=== PATIENT | male | born 1995 | race Caucasian/White ===

== ENCOUNTER 2016-10-19 23:27 | Emergency (ER) | payer OTHER ==
--- NOTE | 2016-10-20 04:48 | ED ORDER SUMMARY ---
..... Patient: MOO FUENTES OrderSheet [facility] VisitID: [id number] [place] [address] 20y, M Registration Date/Time: 10/19/2016 ORDER SHEET Weight: 115.8 kg Allergies: No Known Drug Allergy GENERAL ORDERS: CBC w Diff Urgent (03:32 10/20/2016 Riana Pelaez) (3:43 EBonalfonso) CMP Urgent (03:10/20/2016 Riana Pelaez) (3:43 EBonalfonso) Amylase Urgent (03:10/20/2016 Riana Pelaez) (3:43 EBonalfonso) Lipase Urgent (03:10/20/2016 Riana Pelaez) (3:43 EBonalfonso) MEDICATION ORDERS: IV FLUIDS: IV NS : initial bolus none -, then 1000 mL/hr for X1 (NOW) (03:31 10/20/2016 Riana Pelaez) (3:44 EBonalfonso) ORDER SHEET NOTES: [Electronically signed by Tiffany Callahan (05:10/20/2016)] [Electronically signed by Sebastian Caballero Dr. (11:03 10/20/2016)] [Electronically locked/signed by Tiffany Callahan (05:10/20/2016)]
--- NOTE | 2016-10-20 04:48 | ED NURSING NOTES ---
Clinical Report - Nurses [facility] [address] [place] [address] 10/19/2016 23:30 Patient: MOO FUENTES TRIAGE Triage time 0220. Acuity: LEVEL 3. Chief Complaint: ABDOMINAL PAIN, NAUSEA and VOMITING. Alert. No acute distress. --02:32 Tiffany Callahan 02:28 10/20/16. BP: 119/66. HR: 56. RR: 18. O2 saturation: 96%. Temp: 99.2 F. Pain level now 5/10. --02:32 Tiffany Callahan. Weight: 115.8 kg. Height/Length: 71 inches. BMI: 35.6. --02:28 Tiffany Callahan. Medications PROzac Oral. --02:30 Tiffany Callahan Thyroid Oral. --02:30 Tiffany Callahan. Allergies No Known Drug Allergy. --02:30 Tiffany Callahan. History Arrived by private vehicle. Historian: family. Accompanied by family. Onset. (3 days ago). ( Pt with generalized abd pain, n/v, denies diarrhea, sts has hx of this x5 this year, sts usually goes to Prov, has seen GI, no scope done). ( last BM Tuesday). Treatment HOSPICE PHYSICIAN: None. SOCIAL HX: Never smoker. --02:32 Tiffany Callahan. PROBLEMS: Depression. Thyroid Disease. Gastritis. --02:31 Tiffany Callahan. Interventions ID band on patient. To treatment room. --02:32 Tiffany Callahan. PHYSICAL ASSESSMENT Ambulatory to room. GENERAL / NEURO / PSYCH: Alert. Oriented X 4. Appears in no acute distress. HEENT: Mucous membranes are pink. RESPIRATORY: Respirations not labored. Breath sounds within normal limits. CVS: Normal sinus rhythm noted. Capillary refill less than 2 seconds. GI / : The patient has had nausea. Emesis noted. Obesity. Abdominal tenderness. SKIN: Skin is warm and dry. --02:32 Tiffany Callahan. NURSING PROGRESS NOTES 03:44 10/20/2016 Site #1 started via IV in the right antecubital space with an 20g angiocath, with aseptic technique and good blood return; one attempt. Blood drawn: rainbow set. Labeled in the presence of the patient and sent to the lab. Saline lock flushed with 10 mL saline. --03:44 Tiffany Callahan 03:44 10/20/2016 Started bag #1 500 mL IV Fluids IV NS (Saline); bolus of 1000 mL wide open via site #1 --03:44 Tiffany Callahan 05:00 10/20/2016 Site #1 removed upon discharge. Pressure dressing applied. --05:00 Tiffany Callahan 05:00 10/20/2016 IV Fluids IV NS Discontinued: bag #1 infused upon discharge. Total amount infused: 1000 mL. --05:00 Tiffany Callahan. DISPOSITION / DISCHARGE Departure time: 0500. Condition at departure: improved and stable. No learning barriers present. Discharge instructions provided and reviewed with the patient. Reviewed medication(s). Patient verbalized understanding. Written instructions provided in Kiswahili. The patient was discharged by the physician. He was discharged home and accompanied by family. He left the Emergency Department ambulatory and via private vehicle. Family member driving. --05:01 Tiffany Callahan 05:00 10/20/16. BP: 102/40. HR: 50. RR: 16. O2 saturation: 98%. Pain level now 2/10. --05:01 Tiffany Callahan. Locked/Released at 10/20/2016 5:02 by Tiffany Callahan,
--- NOTE | 2016-10-20 04:48 | ED CLINICAL REPORT ---
Clinical Report - Physicians/Mid Levels [facility] [address] [place] [address] 10/19/2016 23:30 Patient: MOO FUENTES Arrived- By private vehicle. Historian- patient. HISTORY OF PRESENT ILLNESS Chief Complaint: VOMITING. This started about 3 days ago and is still present. It was gradual in onset. The patient has had nausea and vomiting. No diarrhea, abdominal pain, constipation, history of possible bad food exposure or known contact with a sick individual. Has not recently been on antibiotics. The illness is described as mild. Similar symptoms previously: Many times. Recent medical care: Not recently seen/assessed. REVIEW OF SYSTEMS No fever, muscle aches, dizziness or skin rash. He has had a headache. PAST HISTORY See nurses notes. SOCIAL HISTORY Current every day smoker. Alcohol use. History of drug use: marijuana. PHYSICAL EXAM Appearance: Alert. Oriented X3. Eyes: Pupils equal, round and reactive to light. Eyes normal inspection. ENT: Dry mucous membranes present. Neck: Neck supple. CVS: Normal heart rate and rhythm. Heart sounds normal. Respiratory: No respiratory distress. Breath sounds normal. Abdomen: Soft and nontender. Bowel sounds normal. Skin: Skin warm and dry. Normal skin color. No rash. Neuro: Oriented X 3. No motor deficit. No sensory deficit. Reflexes normal. LABS, X-RAYS, AND EKG Laboratory Tests: CBC w Diff: (AKASH: 10/20/2016 03:40) ( MsgRcvd 10/20/2016 03:52) Final results Test Result Flag Units (Reference) WHITE BLOOD COUNT 13.8 H K/uL (4.5-11.5) RED BLOOD COUNT 5.53 M/uL (4.50-5.90) HEMOGLOBIN 16.9 gm/dL (13.5-17.5) HEMATOCRIT 50.5 % (41.0-53.0) MEAN CELL VOLUME 91 fL (80-100) MEAN CORPUSCULAR HGB 31 pg (26-34) MEAN CORPUSCULAR HGB CONC 33 g/dL (31-37) RED CELL DISTRIBUTION WIDTH 12.8 % (11.6-14.8) PLATELET COUNT 222 K/uL (150-400) NEUTROPHIL % 73.1 % (50-75) LYMPH % 20.0 L % (25-40) MONO % 6.1 % (3-14) EOSINOPHIL % 0.2 % (0-4) BASOPHIL % 0.6 % (0-2) CMP: (AKASH: 10/20/2016 03:40) ( MsgRcvd 10/20/2016 04:06) Final results Test Result Flag Units (Reference) GLUCOSE 94 mg/dL (70-110) BUN 15 mg/dL (7-18) CREATININE 1.1 mg/dL (0.6-1.3) Estimated GFR >60 mL/min Estimated GFR- >60 mL/min Note: Persistent reduction over 3 months in eGFR<60 mL/min/1.73 m2 defines CKD. Patients with eGFR values>=60 mL/min/1.73 m2 may also have CKD if evidence ofpersistent proteinuria. Additional information may be foundat www.kidney.org. SODIUM 137 mmol/L (136-145) POTASSIUM 3.7 mmol/L (3.5-5.1) CHLORIDE 100 mmol/L (98-107) CARBON DIOXIDE 28 mmol/L (21-32) CALCIUM 9.3 mg/dL (8.5-10.1) TOTAL PROTEIN 7.7 g/dL (6.4-8.2) ALBUMIN 4.3 g/dL (3.3-5.0) BILIRUBIN, TOTAL 1.1 H mg/dL (0.0-1.0) ALKALINE PHOSPHATASE 64 U/L (46-116) AST (SGOT) 13 L U/L (15-37) ALT (SGPT) 37 U/L (12-78) LIPASE 103 U/L (73-393) AMYLASE 32 U/L (25-115) . PROGRESS AND PROCEDURES Course of Care: 10/20/2016 02:28 BP: 119/66. HR: 56. RR: 18. O2 saturation: 96%. Temp: 99.2 F. 04:47. Evaluation after repeat exam and IV fluids. Vital Signs: have been reviewed. Blood pressure normal. Bradycardic. Respiratory rate normal. Temperature normal. Oxygen saturation normal. The patient's symptoms are now gone. Disposition: Condition: good. CLINICAL IMPRESSION Mild nausea. No vomiting. Acute vascular headache. INSTRUCTIONS Drink plenty of fluids. No alcohol. Do not smoke. Your Current Medications: CONTINUE TAKING THE FOLLOWING MEDICATIONS: PROzac Oral. Thyroid Oral. Prescription Medications: Zofran (orally disintegrating tablets) 4 mg: take 1 orally every 6 hours as needed for nausea and vomiting. Dispense ten (10). No refill. Substitution is permissible. Follow-up: Follow up with your doctor in about two days. Call for an appointment. Screening today revealed the patient's blood pressure to be in the normal range. (Electronically signed by Sebastian Caballero Dr. 10/20/2016 11:03)
--- NOTE | 2016-10-20 04:48 | ED ORDER SUMMARY ---
..... Patient: MOO FUENTES OrderSheet [facility] VisitID: [id number] [place] [address] 20y, M Registration Date/Time: 10/19/2016 ORDER SHEET Weight: 115.8 kg Allergies: No Known Drug Allergy GENERAL ORDERS: CBC w Diff Urgent (03:32 10/20/2016 Riana Pelaez) (3:43 EBonalfonso) CMP Urgent (03:10/20/2016 Riana Pelaez) (3:43 EBonalfonso) Amylase Urgent (03:10/20/2016 Riana Pelaez) (3:43 EBonalfonso) Lipase Urgent (03:10/20/2016 Riana Pelaez) (3:43 EBonalfonso) MEDICATION ORDERS: IV FLUIDS: IV NS : initial bolus none -, then 1000 mL/hr for X1 (NOW) (03:31 10/20/2016 Riana Pelaez) (3:44 EBonalfonso) ORDER SHEET NOTES: [Electronically signed by Tiffany Callahan (05:10/20/2016)] [Electronically signed by Sebastian Caballero Dr. (11:03 10/20/2016)] [Electronically locked/signed by Tiffany Callahan (05:10/20/2016)]
--- NOTE | 2016-10-20 04:48 | ED NURSING NOTES ---
Clinical Report - Nurses [facility] [address] [place] [address] 10/19/2016 23:30 Patient: MOO FUENTES TRIAGE Triage time 0220. Acuity: LEVEL 3. Chief Complaint: ABDOMINAL PAIN, NAUSEA and VOMITING. Alert. No acute distress. --02:32 Tiffany Callahan 02:28 10/20/16. BP: 119/66. HR: 56. RR: 18. O2 saturation: 96%. Temp: 99.2 F. Pain level now 5/10. --02:32 Tiffany Callahan. Weight: 115.8 kg. Height/Length: 71 inches. BMI: 35.6. --02:28 Tiffany Callahan. Medications PROzac Oral. --02:30 Tiffany Callahan Thyroid Oral. --02:30 Tiffany Callahan. Allergies No Known Drug Allergy. --02:30 Tiffany Callahan. History Arrived by private vehicle. Historian: family. Accompanied by family. Onset. (3 days ago). ( Pt with generalized abd pain, n/v, denies diarrhea, sts has hx of this x5 this year, sts usually goes to Prov, has seen GI, no scope done). ( last BM Tuesday). Treatment HOUSE CARPENTER: None. SOCIAL HX: Never smoker. --02:32 Tiffany Callahan. PROBLEMS: Depression. Thyroid Disease. Gastritis. --02:31 Tiffany Callahan. Interventions ID band on patient. To treatment room. --02:32 Tiffany Callahan. PHYSICAL ASSESSMENT Ambulatory to room. GENERAL / NEURO / PSYCH: Alert. Oriented X 4. Appears in no acute distress. HEENT: Mucous membranes are pink. RESPIRATORY: Respirations not labored. Breath sounds within normal limits. CVS: Normal sinus rhythm noted. Capillary refill less than 2 seconds. GI / : The patient has had nausea. Emesis noted. Obesity. Abdominal tenderness. SKIN: Skin is warm and dry. --02:32 Tiffany Callahan. NURSING PROGRESS NOTES 03:44 10/20/2016 Site #1 started via IV in the right antecubital space with an 20g angiocath, with aseptic technique and good blood return; one attempt. Blood drawn: rainbow set. Labeled in the presence of the patient and sent to the lab. Saline lock flushed with 10 mL saline. --03:44 Tiffany Callahan 03:44 10/20/2016 Started bag #1 500 mL IV Fluids IV NS (Saline); bolus of 1000 mL wide open via site #1 --03:44 Tiffany Callahan 05:00 10/20/2016 Site #1 removed upon discharge. Pressure dressing applied. --05:00 Tiffany Callahan 05:00 10/20/2016 IV Fluids IV NS Discontinued: bag #1 infused upon discharge. Total amount infused: 1000 mL. --05:00 Tiffany Callahan. DISPOSITION / DISCHARGE Departure time: 0500. Condition at departure: improved and stable. No learning barriers present. Discharge instructions provided and reviewed with the patient. Reviewed medication(s). Patient verbalized understanding. Written instructions provided in Khmer. The patient was discharged by the physician. He was discharged home and accompanied by family. He left the Emergency Department ambulatory and via private vehicle. Family member driving. --05:01 Tiffany Callahan 05:00 10/20/16. BP: 102/40. HR: 50. RR: 16. O2 saturation: 98%. Pain level now 2/10. --05:01 Tiffany Callahan. Locked/Released at 10/20/2016 5:02 by Tiffany Callahan,
--- NOTE | 2016-10-20 11:03 | ED MAR SUMMARY ---
..... Medication Administration Record [facility] [address] [place] [address] Patient: MOO FUENTES Visit ID: [id number] 20y, M Weight: 115.8 kg Height/Length: 71 in BMI: 35.6 ALLERGIES: No Known Drug Allergy Start 03:44 10/20/2016 Tiffany Callahan,, Stop 05:00 10/20/2016 Tiffany Callahan, Medication Administered: IV NS (SALINE), Dose: IV Fluids, Bolus: 1000 mL wide open, Dispensed: 500 mL bag, Site: #1 right AC. Medication Ordered: IV NS : initial bolus none -, then 1000 mL/hr for X1 (NOW).
--- NOTE | 2016-10-20 11:03 | ED DISCHARGE INSTRUCTIONS ---
Patient: MOO FUENTES General Instructions [facility] VisitID: [id number] [place] [address] 20y, M Registration Date/Time: 10/19/2016 Mild nausea. No vomiting. Acute vascular headache. INSTRUCTIONS Drink plenty of fluids. No alcohol. Do not smoke. Your Current Medications: CONTINUE TAKING THE FOLLOWING MEDICATIONS: PROzac Oral. Thyroid Oral. Prescription Medications: Zofran (orally disintegrating tablets) 4 mg: take 1 orally every 6 hours as needed for nausea and vomiting. Dispense ten (10). No refill. Substitution is permissible. Follow-up: Follow up with your doctor in about two days. Call for an appointment. Screening today revealed the patient's blood pressure to be in the normal range. ADDITIONAL INFORMATION Headache [Unspecified] The cause of your headache today is not clear, but it does not appear to be the sign of any serious illness. Under stress, some people tense the muscles of their shoulder, neck and scalp without knowing it. If this condition lasts long enough, a TENSION HEADACHE can occur. A MIGRAINE HEADACHE is caused by changes in blood flow to the brain. A migraine attack may be triggered by emotional stress, hormone changes during the menstrual cycle, oral contraceptives, alcohol use, certain foods containing tyramine, eye strain, weather changes, missing meals, lack of sleep or oversleeping. Other causes of headache include a viral illness with high fever, head injury with concussion, sinus, ear or throat infection, dental pain and TMJ (jaw joint) pain. More serious but less common causes of headache include stroke, brain hemorrhage, brain tumor, meningitis and encephalitis. Home Care: If you were given pain medicine for this headache, do not drive yourself home. Arrange for a ride, instead. When you get home, try to sleep. You should feel much better when you wake up. Apply heat to the back of your neck to relieve neck muscle spasm. Migraine headaches may respond best to an ice pack on the forehead or at the base of the skull. If you are having nausea or vomiting, follow a light diet until your headache is relieved. If you have a migraine type headache, use sunglasses when in the daylight or around bright indoor lighting until symptoms improve. Bright glaring light can worsen this kind of headache. Follow Up with your doctor if the headache is not better within the next 24 hours. If you have frequent headaches you should discuss a treatment plan with your primary care doctor. By being aware of the earliest signs of headache, and starting treatment right away, you may be able to stop the pain yourself. Get Prompt Medical Attention if any of the following occur: Worsening of your head pain or no improvement within 24 hours Repeated vomiting (unable to keep liquids down) Fever of 100.4F (38C) or higher, or as directed by your healthcare provider Stiff neck Extreme drowsiness, confusion or fainting Dizziness, vertigo (dizziness with spinning sensation) Weakness of an arm or leg or one side of the face Difficulty with speech or vision Ondansetron Oral disintegrating tablet What is this medicine? ONDANSETRON (on SYED se souleymane) is used to treat nausea and vomiting caused by chemotherapy. It is also used to prevent or treat nausea and vomiting after surgery. How should I use this medicine? These tablets are made to dissolve in the mouth. Do not try to push the tablet through the foil backing. With dry hands, peel away the foil backing and gently remove the tablet. Place the tablet in the mouth and allow it to dissolve, then swallow. While you may take these tablets with water, it is not necessary to do so. Talk to your baby stroller rental clerk regarding the use of this medicine in children. Special care may be needed. What side effects may I notice from receiving this medicine? Side effects that you should report to your doctor or health child care associate teacher as soon as possible: allergic reactions like skin rash, itching or hives, swelling of the face, lips, or tongue breathing problems dizziness fast or irregular heartbeat feeling faint or lightheaded, falls fever and chills swelling of the hands and feet tightness in the chest Side effects that usually do not require medical attention (report to your doctor or health child care associate teacher if they continue or are bothersome): constipation or diarrhea headache What may interact with this medicine? Do not take this medicine with any of the following medications: -apomorphine -cisapride -dofetilide -dronedarone -pimozide -thioridazine -ziprasidone This medicine may also interact with the following medications: -carbamazepine -phenytoin -rifampicin -tramadol -other medicines that prolong the QT interval (cause an abnormal heart rhythm) What if I miss a dose? If you miss a dose, take it as soon as you can. If it is almost time for your next dose, take only that dose. Do not take double or extra doses. Where should I keep my medicine? Keep out of the reach of children. Store between 2 and 30 degrees C (36 and 86 degrees F). Throw away any unused medicine after the expiration date. What should I tell my health care provider before I take this medicine? They need to know if you have any of these conditions: heart disease history of irregular heartbeat liver disease low levels of magnesium or potassium in the blood an unusual or allergic reaction to ondansetron, granisetron, other medicines, foods, dyes, or preservatives or trying to get breast-feeding What should I watch for while using this medicine? Check with your doctor or health child care associate teacher as soon as you can if you have any sign of an allergic reaction. You have been given the following additional information: Headache, Unspecified Ondansetron Oral disintegrating tablet (Electronically signed by Sebastian Caballero Dr. 10/20/2016 11:03)
--- NOTE | 2016-10-20 11:03 | ED MAR SUMMARY ---
..... Medication Administration Record [facility] [address] [place] [address] Patient: MOO FUENTES Visit ID: [id number] 20y, M Weight: 115.8 kg Height/Length: 71 in BMI: 35.6 ALLERGIES: No Known Drug Allergy Start 03:44 10/20/2016 Tiffany Callahan,, Stop 05:00 10/20/2016 Tiffany Callahan, Medication Administered: IV NS (SALINE), Dose: IV Fluids, Bolus: 1000 mL wide open, Dispensed: 500 mL bag, Site: #1 right AC. Medication Ordered: IV NS : initial bolus none -, then 1000 mL/hr for X1 (NOW).
--- NOTE | 2016-10-20 11:03 | ED MED RECONCILIATION SUMMARY ---
Patient: MOO FUENTES Medication Reconciliation Report [facility] VisitID: [id number] [address] [place] [address] 20y, M Registration Date/Time: 10/19/2016 Weight: 115.8 kg Height/Length: 71 in. BMI: 35.6 ALLERGIES: No Known Drug Allergy The patient's Home Medications are listed below: CONTINUE TAKING THE FOLLOWING MEDICATIONS: PROzac Oral Thyroid Oral The source(s) of the original Home Medication information: Not obtained. The following Medications were given to the patient in the Emergency Department: IV NS IV Fluids bolus 1000 mL wide open, administered: 10/20/2016 3:44:00 AM The following Medications were prescribed to the patient: Zofran (orally disintegrating tablets) 4 mg: take 1 orally every 6 hours as needed for nausea and vomiting. Dispense ten (10). No refill. Substitution is permissible. -- Sebastian Caballero Dr.
--- NOTE | 2016-10-20 11:03 | ED MED RECONCILIATION SUMMARY ---
Patient: MOO FUENTES Medication Reconciliation Report [facility] VisitID: [id number] [address] [place] [address] 20y, M Registration Date/Time: 10/19/2016 Weight: 115.8 kg Height/Length: 71 in. BMI: 35.6 ALLERGIES: No Known Drug Allergy The patient's Home Medications are listed below: CONTINUE TAKING THE FOLLOWING MEDICATIONS: PROzac Oral Thyroid Oral The source(s) of the original Home Medication information: Not obtained. The following Medications were given to the patient in the Emergency Department: IV NS IV Fluids bolus 1000 mL wide open, administered: 10/20/2016 3:44:00 AM The following Medications were prescribed to the patient: Zofran (orally disintegrating tablets) 4 mg: take 1 orally every 6 hours as needed for nausea and vomiting. Dispense ten (10). No refill. Substitution is permissible. -- Sebastian Caballero Dr.
--- NOTE | 2016-10-20 11:03 | ED DISCHARGE INSTRUCTIONS ---
Patient: MOO FUENTES General Instructions [facility] VisitID: [id number] [place] [address] 20y, M Registration Date/Time: 10/19/2016 Mild nausea. No vomiting. Acute vascular headache. INSTRUCTIONS Drink plenty of fluids. No alcohol. Do not smoke. Your Current Medications: CONTINUE TAKING THE FOLLOWING MEDICATIONS: PROzac Oral. Thyroid Oral. Prescription Medications: Zofran (orally disintegrating tablets) 4 mg: take 1 orally every 6 hours as needed for nausea and vomiting. Dispense ten (10). No refill. Substitution is permissible. Follow-up: Follow up with your doctor in about two days. Call for an appointment. Screening today revealed the patient's blood pressure to be in the normal range. ADDITIONAL INFORMATION Headache [Unspecified] The cause of your headache today is not clear, but it does not appear to be the sign of any serious illness. Under stress, some people tense the muscles of their shoulder, neck and scalp without knowing it. If this condition lasts long enough, a TENSION HEADACHE can occur. A MIGRAINE HEADACHE is caused by changes in blood flow to the brain. A migraine attack may be triggered by emotional stress, hormone changes during the menstrual cycle, oral contraceptives, alcohol use, certain foods containing tyramine, eye strain, weather changes, missing meals, lack of sleep or oversleeping. Other causes of headache include a viral illness with high fever, head injury with concussion, sinus, ear or throat infection, dental pain and TMJ (jaw joint) pain. More serious but less common causes of headache include stroke, brain hemorrhage, brain tumor, meningitis and encephalitis. Home Care: If you were given pain medicine for this headache, do not drive yourself home. Arrange for a ride, instead. When you get home, try to sleep. You should feel much better when you wake up. Apply heat to the back of your neck to relieve neck muscle spasm. Migraine headaches may respond best to an ice pack on the forehead or at the base of the skull. If you are having nausea or vomiting, follow a light diet until your headache is relieved. If you have a migraine type headache, use sunglasses when in the daylight or around bright indoor lighting until symptoms improve. Bright glaring light can worsen this kind of headache. Follow Up with your doctor if the headache is not better within the next 24 hours. If you have frequent headaches you should discuss a treatment plan with your primary care doctor. By being aware of the earliest signs of headache, and starting treatment right away, you may be able to stop the pain yourself. Get Prompt Medical Attention if any of the following occur: Worsening of your head pain or no improvement within 24 hours Repeated vomiting (unable to keep liquids down) Fever of 100.4F (38C) or higher, or as directed by your healthcare provider Stiff neck Extreme drowsiness, confusion or fainting Dizziness, vertigo (dizziness with spinning sensation) Weakness of an arm or leg or one side of the face Difficulty with speech or vision Ondansetron Oral disintegrating tablet What is this medicine? ONDANSETRON (on SYED se souleymane) is used to treat nausea and vomiting caused by chemotherapy. It is also used to prevent or treat nausea and vomiting after surgery. How should I use this medicine? These tablets are made to dissolve in the mouth. Do not try to push the tablet through the foil backing. With dry hands, peel away the foil backing and gently remove the tablet. Place the tablet in the mouth and allow it to dissolve, then swallow. While you may take these tablets with water, it is not necessary to do so. Talk to your director of compliance regarding the use of this medicine in children. Special care may be needed. What side effects may I notice from receiving this medicine? Side effects that you should report to your doctor or health critical care educator as soon as possible: allergic reactions like skin rash, itching or hives, swelling of the face, lips, or tongue breathing problems dizziness fast or irregular heartbeat feeling faint or lightheaded, falls fever and chills swelling of the hands and feet tightness in the chest Side effects that usually do not require medical attention (report to your doctor or health critical care educator if they continue or are bothersome): constipation or diarrhea headache What may interact with this medicine? Do not take this medicine with any of the following medications: -apomorphine -cisapride -dofetilide -dronedarone -pimozide -thioridazine -ziprasidone This medicine may also interact with the following medications: -carbamazepine -phenytoin -rifampicin -tramadol -other medicines that prolong the QT interval (cause an abnormal heart rhythm) What if I miss a dose? If you miss a dose, take it as soon as you can. If it is almost time for your next dose, take only that dose. Do not take double or extra doses. Where should I keep my medicine? Keep out of the reach of children. Store between 2 and 30 degrees C (36 and 86 degrees F). Throw away any unused medicine after the expiration date. What should I tell my health care provider before I take this medicine? They need to know if you have any of these conditions: heart disease history of irregular heartbeat liver disease low levels of magnesium or potassium in the blood an unusual or allergic reaction to ondansetron, granisetron, other medicines, foods, dyes, or preservatives or trying to get breast-feeding What should I watch for while using this medicine? Check with your doctor or health critical care educator as soon as you can if you have any sign of an allergic reaction. You have been given the following additional information: Headache, Unspecified Ondansetron Oral disintegrating tablet (Electronically signed by Sebastian Caballero Dr. 10/20/2016 11:03)
== END 2016-10-20 05:00 | disposition home or self-care (01) ==
LOC: ED SRH 23:27
DX: R11.0 Nausea (principal); G44.1 Vascular headache, not elsewhere classified; F17.210 Nicotine dependence, cigarettes, uncomplicated
CPT/HCPCS: 90100; 92235; 92530; 95059

== ENCOUNTER 2016-12-02 12:50 | Emergency (ER) | payer OTHER ==
--- NOTE | 2016-12-02 15:49 | ED NURSING NOTES ---
Clinical Report - Nurses [facility] [place] [address] 12/02/2016 12:53 Patient: MOO FUENTES TRIAGE Triage time 13:03 Dec 02 2016. Acuity: LEVEL 3. Chief Complaint: ABDOMINAL PAIN, NAUSEA, VOMITING and DIARRHEA. 13:08 12/02/16. Alert. No acute distress. SEPSIS SCREEN: Sepsis Screen. Negative (no infection suspected/documented). ARCENIO COMA SCORE: Arcenio Coma Scale: 15- eyes open spontaneously (4); best verbal response- oriented x 4 (5); best motor response- obeys commands (6). --13:08 Oliva Sharma 13:08 12/02/16. BP: 144/78. HR: 83. RR: 14. O2 saturation: 97%. Temp: 98.7 F. Pain level now 4/10. --13:08 Oliva Sharma. Weight: 115.6 kg stated. Height/Length: 72 inches Per Patient. BMI: 34.6. --13:07 Oliva Sharma. Medications PROzac Oral. Thyroid Oral. --13:06 Oliva Sharma. Medication/allergy information source: the patient. --13:08 Oliva Sharma. Allergies No Known Drug Allergy. --13:06 Oliva Sharma. History Arrived by private vehicle. Historian: patient. Accompanied by (Grandmother dropped off and will sisal picker). Primary physician ([facility] in [facility]). Onset. (Tuesday). ( Pt reports he had a "cold" that started Tuesday with cough. On Tuesday he started having abd symptoms, including nausea, vomiting and diarrhea. Had mild pain right in the middle of his stomach. Pt reports he has been having episodes of this for over the past year. Pt saw GI doctor who "didn't do anything."). He has had nausea, vomiting, diarrhea and abdominal pain. No constipation or fever. Last oral intake by patient was (last night). 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 PAST MEDICAL HX: No history of diabetes mellitus. No history of gastroesophageal reflux disease, peptic ulcer disease or gallstones. Immunizations: up-to-date. SOCIAL HX: Never smoker. Occasional alcohol use. History of drug use: marijuana. No known contact with a sick individual. FALL RISK ASSESSMENT: Fall risk assessment completed. No fall risk identified. NUTRITIONAL RISK ASSESSMENT: The nutritional risk assessment revealed no deficiencies. FUNCTIONAL ASSESSMENT: Functional assessment: no impairments noted. LEARNING NEEDS ASSESSMENT: The learning needs assessment revealed no barriers. SKIN INTEGRITY ASSESSMENT: Skin integrity risk assessment completed. No skin integrity risk identified. --13:08 Oliva Sharma. PROBLEMS: Headache. Nausea. Depression. Thyroid Disease. Gastritis. --13:06 Oliva Sharma. Assessment The patient states feels the same. --13: Oliva Sharma. Interventions ID band on patient. --13: Oliva Sharma. PHYSICAL ASSESSMENT 13:12/02/16. Ambulatory to room. Patient gowned. GENERAL / NEURO / PSYCH: Alert. Oriented X 4. Appears in no acute distress. HEENT: Mucous membranes are pink. RESPIRATORY: Respirations not labored. CVS: Capillary refill less than 2 seconds. GI / : The patient has had nausea. Abdomen soft. Abdominal tenderness in the periumbilical area. SKIN: Skin is warm and dry. --13:08 Oliva Sharma. NURSING PROGRESS NOTES 13:12/02/16. The plan of care for this patient has been created. Pulse oximeter and NIBP monitor placed on patient; monitor alarms on. Patient gowned. Head of bed elevated. Reassurance given. Two patient identifiers checked. Call light placed in reach. Bed placed in lowest position. Brakes of bed on. Patient ready for evaluation- chart flagged and ED physician and DISABILITY PROGRAM NAVIGATOR notified. --13: Oliva Sharma 13:17 12/02/2016 Site #1 started via IV in the right antecubital space with an 20g angiocath, with aseptic technique and good blood return; one attempt. Blood drawn: rainbow set. Labeled in the presence of the patient and sent to the lab. Saline lock flushed with 10 mL saline. --13:22 Oliva Sharma 13:12/02/2016 Started bag #1 1000 mL IV Fluids IV NS (Saline); at 1000 mL/hr over 1 hour(s) via site #1 via IV pump. Allergies verified and confirmed 5 rights. IV patency established. IV site checked: no pain, redness, or swelling. IV flushed thoroughly pre- and post-medication administration. --13:31 Oliva Sharma 13:12/02/2016 Zofran (Ondansetron HCl) IVP 4 mg given over 1 minute(s) via site #1. Allergies verified and confirmed 5 rights. IV patency established. IV site checked: no pain, redness, or swelling. IV flushed thoroughly pre- and post-medication administration. IVP given by RN. --13:31 Oliva Sharma 14:18 12/02/16. BP: 146/86. HR: 83. O2 saturation: 97%. --14:18 Oliva Sharma 14:18 12/02/16. ( Pt aware of need for urine sample.). --14:18 Oliva Sharma 14:34 12/02/2016 IV Fluids IV NS Bag Change: bag #1 infused. Total amount infused: 1000. STARTED bag #2 (1000 mL) at 150 mL/hr via IV pump. Confirmed 5 rights. IV patency established. IV site checked: no pain, redness, or swelling. IV flushed thoroughly. --14:34 Oliva Sharma Patient ID band checked for patient name: patient confirmed. Instructions provided to collect clean catch urine and patient verbalized understanding urine collected with return of yellow-colored clear urine; odor is normal; sample sent to lab for urinalysis and culture. Specimen labeled in the presence of the patient. --14:54 Esha Norma 15:12 12/02/16. BP: 146/75. HR: 96. RR: 14. O2 saturation: 97%. --15:12 Oliva Sharma 16:12/02/2016 Site #1 removed upon discharge. Catheter intact. Pressure dressing applied. --16:05 Oliva Sharma 16:12/02/2016 IV Fluids IV NS Discontinued: bag #1 discontinued upon discharge. Total amount infused: 300 mL. --16:05 Oliva Sharma. DISPOSITION / DISCHARGE 16:04 12/02/16. Departure time: 16:04 Dec 02 2016. Condition at departure: unchanged. The goals identified in the patient's plan of care were met. No learning barriers present. Discharge instructions provided and reviewed with the patient. Reviewed warnings (Patient verbalized awareness of warning s/sx listed in dc paperwork.). Reviewed medication(s) side effects, precautions, dosing and course information. Prescription(s) given to the patient (Zofran, Phenergan). Treatments reviewed. Reviewed referral to a primary care physician for followup. Work note given (Do not drive/operate machinery while taking medication.). Patient verbalized understanding. Written instructions provided in Lao. The patient was discharged by the physician. He was discharged home and accompanied by family. He left the Emergency Department ambulatory and via private vehicle. Family member driving. FALL RISK ASSESSMENT: Fall risk assessment completed. No fall risk identified. --16:04 Oliva Sharma 16:03 12/02/16. BP: 145/95. HR: 60. RR: 14. O2 saturation: 97% on room air. Temp: 97.9 F. Pain level now: 03/26. --16:04 Oliva Sharma. Locked/Released at 12/02/2016 16:07 by Oliva Sharma,
--- NOTE | 2016-12-02 15:49 | ED NURSING NOTES ---
Clinical Report - Nurses Merged With [facility] [place] [address] 12/02/2016 12:53 Patient: MOO FUENTES TRIAGE Triage time 13:03 Dec 02 2016. Acuity: LEVEL 3. Chief Complaint: ABDOMINAL PAIN, NAUSEA, VOMITING and DIARRHEA. 13:08 12/02/16. Alert. No acute distress. SEPSIS SCREEN: Sepsis Screen. Negative (no infection suspected/documented). ARCENIO COMA SCORE: Arcenio Coma Scale: 15- eyes open spontaneously (4); best verbal response- oriented x 4 (5); best motor response- obeys commands (6). --13:08 Oliva Sharma 13:08 12/02/16. BP: 144/78. HR: 83. RR: 14. O2 saturation: 97%. Temp: 98.7 F. Pain level now 4/10. --13:08 Oliva Sharma. Weight: 115.6 kg stated. Height/Length: 72 inches Per Patient. BMI: 34.6. --13:07 Oliva Sharma. Medications PROzac Oral. Thyroid Oral. --13:06 Oliva Sharma. Medication/allergy information source: the patient. --13:08 Oliva Sharma. Allergies No Known Drug Allergy. --13:06 Oliva Sharma. History Arrived by private vehicle. Historian: patient. Accompanied by (Grandmother dropped off and will leaf size picker). Primary physician ([facility] in [facility]). Onset. (Tuesday). ( Pt reports he had a "cold" that started Tuesday with cough. On Tuesday he started having abd symptoms, including nausea, vomiting and diarrhea. Had mild pain right in the middle of his stomach. Pt reports he has been having episodes of this for over the past year. Pt saw GI doctor who "didn't do anything."). He has had nausea, vomiting, diarrhea and abdominal pain. No constipation or fever. Last oral intake by patient was (last night). 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 PAST MEDICAL HX: No history of diabetes mellitus. No history of gastroesophageal reflux disease, peptic ulcer disease or gallstones. Immunizations: up-to-date. SOCIAL HX: Never smoker. Occasional alcohol use. History of drug use: marijuana. No known contact with a sick individual. FALL RISK ASSESSMENT: Fall risk assessment completed. No fall risk identified. NUTRITIONAL RISK ASSESSMENT: The nutritional risk assessment revealed no deficiencies. FUNCTIONAL ASSESSMENT: Functional assessment: no impairments noted. LEARNING NEEDS ASSESSMENT: The learning needs assessment revealed no barriers. SKIN INTEGRITY ASSESSMENT: Skin integrity risk assessment completed. No skin integrity risk identified. --13:08 Oliva Sharma. PROBLEMS: Headache. Nausea. Depression. Thyroid Disease. Gastritis. --13:06 Oliva Sharma. Assessment The patient states feels the same. --13: Oliva Sharma. Interventions ID band on patient. --13: Oliva Sharma. PHYSICAL ASSESSMENT 13:12/02/16. Ambulatory to room. Patient gowned. GENERAL / NEURO / PSYCH: Alert. Oriented X 4. Appears in no acute distress. HEENT: Mucous membranes are pink. RESPIRATORY: Respirations not labored. CVS: Capillary refill less than 2 seconds. GI / : The patient has had nausea. Abdomen soft. Abdominal tenderness in the periumbilical area. SKIN: Skin is warm and dry. --13:08 Oliva Sharma. NURSING PROGRESS NOTES 13:12/02/16. The plan of care for this patient has been created. Pulse oximeter and NIBP monitor placed on patient; monitor alarms on. Patient gowned. Head of bed elevated. Reassurance given. Two patient identifiers checked. Call light placed in reach. Bed placed in lowest position. Brakes of bed on. Patient ready for evaluation- chart flagged and ED physician and HAND CLIPPER notified. --13: Oliva Sharma 13:17 12/02/2016 Site #1 started via IV in the right antecubital space with an 20g angiocath, with aseptic technique and good blood return; one attempt. Blood drawn: rainbow set. Labeled in the presence of the patient and sent to the lab. Saline lock flushed with 10 mL saline. --13:22 Oliva Sharma 13:12/02/2016 Started bag #1 1000 mL IV Fluids IV NS (Saline); at 1000 mL/hr over 1 hour(s) via site #1 via IV pump. Allergies verified and confirmed 5 rights. IV patency established. IV site checked: no pain, redness, or swelling. IV flushed thoroughly pre- and post-medication administration. --13:31 Oliva Sharma 13:12/02/2016 Zofran (Ondansetron HCl) IVP 4 mg given over 1 minute(s) via site #1. Allergies verified and confirmed 5 rights. IV patency established. IV site checked: no pain, redness, or swelling. IV flushed thoroughly pre- and post-medication administration. IVP given by RN. --13:31 Oliva Sharma 14:18 12/02/16. BP: 146/86. HR: 83. O2 saturation: 97%. --14:18 Oliva Sharma 14:18 12/02/16. ( Pt aware of need for urine sample.). --14:18 Oliva Sharma 14:34 12/02/2016 IV Fluids IV NS Bag Change: bag #1 infused. Total amount infused: 1000. STARTED bag #2 (1000 mL) at 150 mL/hr via IV pump. Confirmed 5 rights. IV patency established. IV site checked: no pain, redness, or swelling. IV flushed thoroughly. --14:34 Oliva Sharma Patient ID band checked for patient name: patient confirmed. Instructions provided to collect clean catch urine and patient verbalized understanding urine collected with return of yellow-colored clear urine; odor is normal; sample sent to lab for urinalysis and culture. Specimen labeled in the presence of the patient. --14:54 Esha Norma 15:12 12/02/16. BP: 146/75. HR: 96. RR: 14. O2 saturation: 97%. --15:12 Oliva Sharma 16:12/02/2016 Site #1 removed upon discharge. Catheter intact. Pressure dressing applied. --16:05 Oliva Sharma 16:12/02/2016 IV Fluids IV NS Discontinued: bag #1 discontinued upon discharge. Total amount infused: 300 mL. --16:05 Oliva Sharma. DISPOSITION / DISCHARGE 16:04 12/02/16. Departure time: 16:04 Dec 02 2016. Condition at departure: unchanged. The goals identified in the patient's plan of care were met. No learning barriers present. Discharge instructions provided and reviewed with the patient. Reviewed warnings (Patient verbalized awareness of warning s/sx listed in dc paperwork.). Reviewed medication(s) side effects, precautions, dosing and course information. Prescription(s) given to the patient (Zofran, Phenergan). Treatments reviewed. Reviewed referral to a primary care physician for followup. Work note given (Do not drive/operate machinery while taking medication.). Patient verbalized understanding. Written instructions provided in Tanzanian. The patient was discharged by the physician. He was discharged home and accompanied by family. He left the Emergency Department ambulatory and via private vehicle. Family member driving. FALL RISK ASSESSMENT: Fall risk assessment completed. No fall risk identified. --16:04 Oliva Sharma 16:03 12/02/16. BP: 145/95. HR: 60. RR: 14. O2 saturation: 97% on room air. Temp: 97.9 F. Pain level now: 03/26. --16:04 Oliva Sharma. Locked/Released at 12/02/2016 16:07 by Oliva Sharma,
--- NOTE | 2016-12-02 15:49 | ED ORDER SUMMARY ---
..... Patient: MOO FUENTES OrderSheet [facility] VisitID: [id number] [address] [place] [address] 21y, M Registration Date/Time: 12/02/2016 ORDER SHEET Weight: 115.6 kg (stated) Allergies: No Known Drug Allergy GENERAL ORDERS: CBC w Diff Urgent (13:13 12/02/2016 Charli VENEGAS) (13:22 ASchmuck) CMP Urgent (13:13 12/02/2016 Charli VENEGAS) (13:22 ASchmuck) UA-Culture if indicated Urgent (13:13 12/02/2016 Charli VENEGAS) (Ack 14:11 ALawrence ER Tech1) (15:12 ASchmuck) Amylase Urgent (13:13 12/02/2016 Charli VENEGAS) (13:22 ASchmuck) Lipase Urgent (13:13 12/02/2016 Charli VENEGAS) (13:22 ASchmuck) Urine Drug Screen Urgent (13:31 12/02/2016 Charli VENEGAS) (Ack 14:11 Newserwrence ER Tech1) (15:12 ASchmuck) TSH Urgent (13:37 12/02/2016 Charli VENEGAS) (13:55 Madison) Abdomen 1V Urgent (14:58 12/02/2016 Charli VENEGAS) (Ack 15:14 Madison) (16:05 ASchmuck) MEDICATION ORDERS: IV FLUIDS: IV NS : initial bolus 1000 mL (1000 mL/hr), then 150 mL/hr for 4h (NOW); Urgent (13:12 12/02/2016 Charli VENEGAS) (Ack 13:22 ASchmsolomon) (13:31 ASchmuck) Zofran IV 4 mg (NOW) (13:13 12/02/2016 Charli VENEGAS) (Ack 13:22 Rajendra) (13:31 ASchmuck) ORDER SHEET NOTES: [Electronically signed by Oliva Sharma (16:07 12/02/2016)] [Electronically signed by Clifford Rosario MD (18:35 12/02/2016)] [Electronically locked/signed by Oliva Sharma (16:07 12/02/2016)]
--- NOTE | 2016-12-02 15:49 | ED CLINICAL REPORT ---
Clinical Report - Physicians/Mid Levels [facility] [address] [place] [address] 12/02/2016 12:53 Patient: MOO FUENTES Time Seen: 13:12. Arrived- By private vehicle. Historian- patient. HISTORY OF PRESENT ILLNESS Chief Complaint: VOMITING and DIARRHEA. This started several days ago and is still present. It was gradual in onset and has been intermittent and waxing/waning. No recent travel. He has had nausea, vomiting, diarrhea and abdominal pain. The pain is described as located in the upper abdomen and epigastrium. No black stools, bloody stools, history of possible bad food exposure, known contact with a sick individual or change in routine. Has not recently been camping or on antibiotics. The illness is described as severe. Similar symptoms previously: Many times, chronically. REVIEW OF SYSTEMS No chills, fever, calf pain, chest pain or urinary problems. He has experienced sweats. ("clammy"). He has had a cough (recently - improving now). All systems otherwise negative, except as recorded above. PAST HISTORY Problems: Headache. Nausea. Depression. Thyroid Disease. Gastritis. Medications: PROzac Oral. Thyroid Oral. Allergies: No Known Drug Allergy. SOCIAL HISTORY Never smoker. Occasional alcohol use. History of occasional drug use: marijuana. He lives with a family member. ADDITIONAL NOTES The nursing notes have been reviewed. PHYSICAL EXAM Vital Signs: 12/02/2016 13:08 BP: 144/78. HR: 83. RR: 14. O2 saturation: 97%. Temp: 98.7 F. Have been reviewed. Appearance: Alert. Eyes: Pupils equal, round and reactive to light. ENT: Pharynx normal. Neck: Normal inspection. Neck supple. CVS: Normal heart rate and rhythm. Heart sounds normal. Respiratory: No respiratory distress. Breath sounds normal. Abdomen: Soft and nontender. Bowel sounds normal. No organomegaly. No mass. Obese. Back: Normal inspection. No CVA tenderness. Skin: Skin warm and dry. Normal skin color. Normal skin turgor. Extremities: Extremities exhibit normal ROM. No calf tenderness. No lower extremity edema. LABS, X-RAYS, AND EKG KUB: Normal abdominal study. Laboratory Tests: UA-Culture if indicated: (AKASH: 12/02/2016 14:45) ( [facility] 12/02/2016 15:13) Final results Test Result Flag Units (Reference) URINE COLOR YELLOW URINE APPEARANCE CLEAR URINE GLUCOSE NEGATIVE (NEGATIVE) URINE BILIRUBIN NEGATIVE (NEGATIVE) URINE KETONE 1+ (NEGATIVE) URINE SPECIFIC GRAVITY 1.015 (1.010-1.030) URINE PH 7.0 (5.0-8.0) URINE PROTEIN 1+ (NEGATIVE) URINE UROBILINOGEN 0.2 EU/dL (0.2-1.0) URINE NITRITE NEGATIVE (NEGATIVE) URINE BLOOD NEGATIVE (NEGATIVE) URINE LEUK ESTERASE NEGATIVE (NEGATIVE) URINE RBC NONE SEEN rbc/hpf (0-1) URINE WBC NONE SEEN wbc/hpf (0-1) URINE EPITHELIAL CELLS 0-1 EPI/hpf (0-5) URINE BACTERIA NONE SEEN (NONE SEEN) URINE COMMENT CULT NOT INDICATED TRACE MUCUSURINE CULTURES ARE SET-UP BASED ON THE FOLLOWING CRITERIA:POSITIVE NITRITEPOSITIVE LEUKOCYTE ESTERASEGREATER THAN 10 WHITE BLOOD CELLSMODERATE (2+) OR GREATER BACTERIA CBC w Diff: (AKASH: 12/02/2016 13:16) ( [facility] [place] 12/02/2016 13:28) Final results Test Result Flag Units (Reference) WHITE BLOOD COUNT 3.2 L K/uL (4.5-11.5) RED BLOOD COUNT 5.53 M/uL (4.50-5.90) HEMOGLOBIN 16.8 gm/dL (13.5-17.5) HEMATOCRIT 49.7 % (41.0-53.0) MEAN CELL VOLUME 90 fL (80-100) MEAN CORPUSCULAR HGB 30 pg (26-34) MEAN CORPUSCULAR HGB CONC 34 g/dL (31-37) RED CELL DISTRIBUTION WIDTH 13.0 % (11.6-14.8) PLATELET COUNT 127 L K/uL (150-400) NEUTROPHIL % 54.9 % (50-75) LYMPH % 32.8 % (25-40) MONO % 11.7 % (3-14) EOSINOPHIL % 0 % (0-4) BASOPHIL % 0.6 % (0-2) TSH: (AKASH: 12/02/2016 13:54) ( [facility] [place] 12/02/2016 14:31) Final results Test Result Flag Units (Reference) THYROID STIMULATING HORMONE 1.691 uIU/mL (0.34-3.74) Urine Drug Screen: (AKASH: 12/02/2016 14:45) ( [facility] [place] 12/02/2016 15:08) Final results Test Result Flag Units (Reference) AMPHETAMINE/METHAMPHETAMINE NEGATIVE (NEGATIVE) BARBITURATE NEGATIVE (NEGATIVE) BENZODIAZEPINE NEGATIVE (NEGATIVE) CANNABINOID POSITIVE H (NEGATIVE) COCAINE NEGATIVE (NEGATIVE) ECSTASY NEGATIVE (NEGATIVE) METHADONE NEGATIVE (NEGATIVE) OPIATE NEGATIVE (NEGATIVE) The urine drug screen is a qualitative screening test fordrug overdose and abuse. All screen results should beconsidered as presumptive.Drugs screened for are as follows:BenzodiazepinesCocaineAmphetamines/MetamphetaminesTHC (Tetrahydrocannabinol)OpiatesBarbituratesEcstasyMethadonePositive results are unconfirmed. For confirmation, notifythe lab for the specimen to be sent to the reference lab.All confirmations must be performed by a differentmethodology.The ingestion of natural herbal and plant productscontaining Ephedra/Ephedra metabolites can produce in urineone or more substances capable of cross reacting withamphetamine/methamphetamine immunoassays. These testsprovide a preliminary result only. A more specificalternative chemical method must be used to obtain aconfirmed analytical result. CMP: (AKASH: 12/02/2016 13:16) ( [facility] 12/02/2016 14:21) Final results Test Result Flag Units (Reference) GLUCOSE 132 H mg/dL (70-110) BUN 9 mg/dL (7-18) CREATININE 0.8 mg/dL (0.6-1.3) Estimated GFR >60 mL/min Estimated GFR- >60 mL/min Note: Persistent reduction over 3 months in eGFR<60 mL/min/1.73 m2 defines CKD. Patients with eGFR values>=60 mL/min/1.73 m2 may also have CKD if evidence ofpersistent proteinuria. Additional information may be foundat www.kidney.org. SODIUM 139 mmol/L (136-145) POTASSIUM 3.5 mmol/L (3.5-5.1) CHLORIDE 102 mmol/L (98-107) CARBON DIOXIDE 26 mmol/L (21-32) CALCIUM 8.5 mg/dL (8.5-10.1) TOTAL PROTEIN 7.2 g/dL (6.4-8.2) ALBUMIN 3.7 g/dL (3.3-5.0) BILIRUBIN, TOTAL 0.5 mg/dL (0.0-1.0) ALKALINE PHOSPHATASE 64 U/L (46-116) AST (SGOT) 23 U/L (15-37) ALT (SGPT) 53 U/L (12-78) LIPASE 114 U/L (73-393) AMYLASE 28 U/L (25-115) . PROGRESS AND PROCEDURES Patient/family counseled. Old medical records ordered. CLINICAL IMPRESSION Vomiting. Diarrhea. Abnormal tests: (leukopenia and thrombocytopenia). Substance abuse- marijuana. (possible cannabinoid hyperemesis syndrome). INSTRUCTIONS No driving or operating machinery while taking medication. Drink plenty of fluids. (discontinue the use of marijuana as discussed. This may be contributing to your chronic reoccurring symptoms). Warnings: Further evaluation is necessary. GENERAL WARNINGS: Return or contact your physician immediately if your condition worsens or changes unexpectedly, if not improving as expected, or if other problems arise. Prescription Medications: Zofran 4 mg: Take 1 orally every six hours as needed for nausea/vomiting. Dispense ten (10). No refills. Substitution is permissible. Phenergan suppositories 25 mg: Insert 1 rectally every 4 to 6 hours as needed for nausea or vomiting. Dispense ten (10). No refills. Substitution is permissible. Follow-up: Follow up with your doctor tomorrow. Call for an appointment. Follow up with a counter attendant and scientific technical writer- as recommended by your primary care physician. Understanding of the discharge instructions verbalized by patient and family. (Electronically signed by Clifford Rosario MD 12/02/2016 18:35)
--- NOTE | 2016-12-02 15:49 | ED CLINICAL REPORT ---
Clinical Report - Physicians/Mid Levels [facility] [address] [place] [address] 12/02/2016 12:53 Patient: MOO FUENTES Time Seen: 13:12. Arrived- By private vehicle. Historian- patient. HISTORY OF PRESENT ILLNESS Chief Complaint: VOMITING and DIARRHEA. This started several days ago and is still present. It was gradual in onset and has been intermittent and waxing/waning. No recent travel. He has had nausea, vomiting, diarrhea and abdominal pain. The pain is described as located in the upper abdomen and epigastrium. No black stools, bloody stools, history of possible bad food exposure, known contact with a sick individual or change in routine. Has not recently been camping or on antibiotics. The illness is described as severe. Similar symptoms previously: Many times, chronically. REVIEW OF SYSTEMS No chills, fever, calf pain, chest pain or urinary problems. He has experienced sweats. ("clammy"). He has had a cough (recently - improving now). All systems otherwise negative, except as recorded above. PAST HISTORY Problems: Headache. Nausea. Depression. Thyroid Disease. Gastritis. Medications: PROzac Oral. Thyroid Oral. Allergies: No Known Drug Allergy. SOCIAL HISTORY Never smoker. Occasional alcohol use. History of occasional drug use: marijuana. He lives with a family member. ADDITIONAL NOTES The nursing notes have been reviewed. PHYSICAL EXAM Vital Signs: 12/02/2016 13:08 BP: 144/78. HR: 83. RR: 14. O2 saturation: 97%. Temp: 98.7 F. Have been reviewed. Appearance: Alert. Eyes: Pupils equal, round and reactive to light. ENT: Pharynx normal. Neck: Normal inspection. Neck supple. CVS: Normal heart rate and rhythm. Heart sounds normal. Respiratory: No respiratory distress. Breath sounds normal. Abdomen: Soft and nontender. Bowel sounds normal. No organomegaly. No mass. Obese. Back: Normal inspection. No CVA tenderness. Skin: Skin warm and dry. Normal skin color. Normal skin turgor. Extremities: Extremities exhibit normal ROM. No calf tenderness. No lower extremity edema. LABS, X-RAYS, AND EKG KUB: Normal abdominal study. Laboratory Tests: UA-Culture if indicated: (AKASH: 12/02/2016 14:45) ( [facility] 12/02/2016 15:13) Final results Test Result Flag Units (Reference) URINE COLOR YELLOW URINE APPEARANCE CLEAR URINE GLUCOSE NEGATIVE (NEGATIVE) URINE BILIRUBIN NEGATIVE (NEGATIVE) URINE KETONE 1+ (NEGATIVE) URINE SPECIFIC GRAVITY 1.015 (1.010-1.030) URINE PH 7.0 (5.0-8.0) URINE PROTEIN 1+ (NEGATIVE) URINE UROBILINOGEN 0.2 EU/dL (0.2-1.0) URINE NITRITE NEGATIVE (NEGATIVE) URINE BLOOD NEGATIVE (NEGATIVE) URINE LEUK ESTERASE NEGATIVE (NEGATIVE) URINE RBC NONE SEEN rbc/hpf (0-1) URINE WBC NONE SEEN wbc/hpf (0-1) URINE EPITHELIAL CELLS 0-1 EPI/hpf (0-5) URINE BACTERIA NONE SEEN (NONE SEEN) URINE COMMENT CULT NOT INDICATED TRACE MUCUSURINE CULTURES ARE SET-UP BASED ON THE FOLLOWING CRITERIA:POSITIVE NITRITEPOSITIVE LEUKOCYTE ESTERASEGREATER THAN 10 WHITE BLOOD CELLSMODERATE (2+) OR GREATER BACTERIA CBC w Diff: (AKASH: 12/02/2016 13:16) ( [facility] [place] 13:28) Final results Test Result Flag Units (Reference) WHITE BLOOD COUNT 3.2 L K/uL (4.5-11.5) RED BLOOD COUNT 5.53 M/uL (4.50-5.90) HEMOGLOBIN 16.8 gm/dL (13.5-17.5) HEMATOCRIT 49.7 % (41.0-53.0) MEAN CELL VOLUME 90 fL (80-100) MEAN CORPUSCULAR HGB 30 pg (26-34) MEAN CORPUSCULAR HGB CONC 34 g/dL (31-37) RED CELL DISTRIBUTION WIDTH 13.0 % (11.6-14.8) PLATELET COUNT 127 L K/uL (150-400) NEUTROPHIL % 54.9 % (50-75) LYMPH % 32.8 % (25-40) MONO % 11.7 % (3-14) EOSINOPHIL % 0 % (0-4) BASOPHIL % 0.6 % (0-2) TSH: (AKASH: 12/02/2016 13:54) ( [facility] 12/02/2016 14:31) Final results Test Result Flag Units (Reference) THYROID STIMULATING HORMONE 1.691 uIU/mL (0.34-3.74) Urine Drug Screen: (AKASH: 12/02/2016 14:45) ( [facility] 12/02/2016 15:08) Final results Test Result Flag Units (Reference) AMPHETAMINE/METHAMPHETAMINE NEGATIVE (NEGATIVE) BARBITURATE NEGATIVE (NEGATIVE) BENZODIAZEPINE NEGATIVE (NEGATIVE) CANNABINOID POSITIVE H (NEGATIVE) COCAINE NEGATIVE (NEGATIVE) ECSTASY NEGATIVE (NEGATIVE) METHADONE NEGATIVE (NEGATIVE) OPIATE NEGATIVE (NEGATIVE) The urine drug screen is a qualitative screening test fordrug overdose and abuse. All screen results should beconsidered as presumptive.Drugs screened for are as follows:BenzodiazepinesCocaineAmphetamines/MetamphetaminesTHC (Tetrahydrocannabinol)OpiatesBarbituratesEcstasyMethadonePositive results are unconfirmed. For confirmation, notifythe lab for the specimen to be sent to the reference lab.All confirmations must be performed by a differentmethodology.The ingestion of natural herbal and plant productscontaining Ephedra/Ephedra metabolites can produce in urineone or more substances capable of cross reacting withamphetamine/methamphetamine immunoassays. These testsprovide a preliminary result only. A more specificalternative chemical method must be used to obtain aconfirmed analytical result. CMP: (AKASH: 12/02/2016 13:16) ( [facility] 12/02/2016 14:21) Final results Test Result Flag Units (Reference) GLUCOSE 132 H mg/dL (70-110) BUN 9 mg/dL (7-18) CREATININE 0.8 mg/dL (0.6-1.3) Estimated GFR >60 mL/min Estimated GFR- >60 mL/min Note: Persistent reduction over 3 months in eGFR<60 mL/min/1.73 m2 defines CKD. Patients with eGFR values>=60 mL/min/1.73 m2 may also have CKD if evidence ofpersistent proteinuria. Additional information may be foundat www.kidney.org. SODIUM 139 mmol/L (136-145) POTASSIUM 3.5 mmol/L (3.5-5.1) CHLORIDE 102 mmol/L (98-107) CARBON DIOXIDE 26 mmol/L (21-32) CALCIUM 8.5 mg/dL (8.5-10.1) TOTAL PROTEIN 7.2 g/dL (6.4-8.2) ALBUMIN 3.7 g/dL (3.3-5.0) BILIRUBIN, TOTAL 0.5 mg/dL (0.0-1.0) ALKALINE PHOSPHATASE 64 U/L (46-116) AST (SGOT) 23 U/L (15-37) ALT (SGPT) 53 U/L (12-78) LIPASE 114 U/L (73-393) AMYLASE 28 U/L (25-115) . PROGRESS AND PROCEDURES Patient/family counseled. Old medical records ordered. CLINICAL IMPRESSION Vomiting. Diarrhea. Abnormal tests: (leukopenia and thrombocytopenia). Substance abuse- marijuana. (possible cannabinoid hyperemesis syndrome). INSTRUCTIONS No driving or operating machinery while taking medication. Drink plenty of fluids. (discontinue the use of marijuana as discussed. This may be contributing to your chronic reoccurring symptoms). Warnings: Further evaluation is necessary. GENERAL WARNINGS: Return or contact your physician immediately if your condition worsens or changes unexpectedly, if not improving as expected, or if other problems arise. Prescription Medications: Zofran 4 mg: Take 1 orally every six hours as needed for nausea/vomiting. Dispense ten (10). No refills. Substitution is permissible. Phenergan suppositories 25 mg: Insert 1 rectally every 4 to 6 hours as needed for nausea or vomiting. Dispense ten (10). No refills. Substitution is permissible. Follow-up: Follow up with your doctor tomorrow. Call for an appointment. Follow up with a ticket maker and combat systems operator- as recommended by your primary care physician. Understanding of the discharge instructions verbalized by patient and family. (Electronically signed by Clifford Rosario MD 12/02/2016 18:35)
--- NOTE | 2016-12-02 15:49 | ED ORDER SUMMARY ---
..... Patient: MOO FUNETES OrderSheet [facility] VisitID: [id number] [address] [place] [address] 21y, M Registration Date/Time: 12/02/2016 ORDER SHEET Weight: 115.6 kg (stated) Allergies: No Known Drug Allergy GENERAL ORDERS: CBC w Diff Urgent (13:13 12/02/2016 Charli VENEGAS) (13:22 ASchmuck) CMP Urgent (13:13 12/02/2016 Charli VENEGAS) (13:22 ASchmuck) UA-Culture if indicated Urgent (13:13 12/02/2016 Charli VENEGAS) (Ack 14:11 ALawrence ER Tech1) (15:12 ASchmuck) Amylase Urgent (13:13 12/02/2016 Charli VENEGAS) (13:22 ASchmuck) Lipase Urgent (13:13 12/02/2016 Charli VENEGAS) (13:22 ASchmuck) Urine Drug Screen Urgent (13:31 12/02/2016 Charli VENEGAS) (Ack 14:11 GO-SIMwrence ER Tech1) (15:12 ASchmuck) TSH Urgent (13:37 12/02/2016 Charli VENEGAS) (13:55 Madison) Abdomen 1V Urgent (14:58 12/02/2016 Charli VENEGAS) (Ack 15:14 Madison) (16:05 ASchmuck) MEDICATION ORDERS: IV FLUIDS: IV NS : initial bolus 1000 mL (1000 mL/hr), then 150 mL/hr for 4h (NOW); Urgent (13:12 12/02/2016 Charli VENEGAS) (Ack 13:22 ASchmsolomon) (13:31 ASchmuck) Zofran IV 4 mg (NOW) (13:13 12/02/2016 Charli VENEGAS) (Ack 13:22 Rajendra) (13:31 ASchmuck) ORDER SHEET NOTES: [Electronically signed by Oliva Sharma (16:07 12/02/2016)] [Electronically signed by Clifford Rosario MD (18:35 12/02/2016)] [Electronically locked/signed by Oliva Sharma (16:07 12/02/2016)]
--- NOTE | 2016-12-02 16:05 | DIAGNOSTIC IMAGING REPORT ---
PROCEDURE: XR ABDOMEN 1 VIEW INDICATION: ABDOMINAL PAIN TECHNIQUE: AP upright view. COMPARISON: None. FINDINGS: Bowel pattern is normal. No evidence of free air. There is a 2 mm calcification overlying the medial right kidney. Soft tissues and osseous structures are otherwise normal. IMPRESSION: 1. There is 2 mm calcification overlying the right kidney which could represent a urinary tract calculus (or may be incidental finding). 2. Otherwise negative abdomen. 3. Findings discussed with Dr. Clifford Rosario
--- NOTE | 2016-12-02 18:35 | ED MED RECONCILIATION SUMMARY ---
Patient: MOO FUENTES Medication Reconciliation Report [facility] VisitID: [id number] [address] [place] [address] 21y, M Registration Date/Time: 12/02/2016 Weight: 115.6 kg Height/Length: 72 in. BMI: 34.6 ALLERGIES: No Known Drug Allergy The patient's Home Medications are listed below: THE FOLLOWING MEDICATIONS NEED TO BE RECONCILED: PROzac Oral Thyroid Oral The source(s) of the original Home Medication information: patient The following Medications were given to the patient in the Emergency Department: IV NS IV Fluids bolus 0, then 1000 mL/hr, administered: 12/02/2016 1:31:00 PM Zofran [IVP] IVP 4 mg, administered: 12/02/2016 1:31:00 PM The following Medications were prescribed to the patient: Zofran 4 mg: Take 1 orally every six hours as needed for nausea/vomiting. Dispense ten (10). No refills. Substitution is permissible. -- Clifford Rosario MD Phenergan suppositories 25 mg: Insert 1 rectally every 4 to 6 hours as needed for nausea or vomiting. Dispense ten (10). No refills. Substitution is permissible. -- Clifford Rosario MD
--- NOTE | 2016-12-02 18:35 | ED DISCHARGE INSTRUCTIONS ---
Patient: MOO FUENTES General Instructions [facility] VisitID: [id number] [place] [address] 21y, M Registration Date/Time: 12/02/2016 Vomiting. Diarrhea. Abnormal tests: (leukopenia and thrombocytopenia). Substance abuse- marijuana. INSTRUCTIONS No driving or operating machinery while taking medication. Drink plenty of fluids. (discontinue the use of marijuana as discussed. This may be contributing to your chronic reoccurring symptoms). Warnings: Further evaluation is necessary. GENERAL WARNINGS: Return or contact your physician immediately if your condition worsens or changes unexpectedly, if not improving as expected, or if other problems arise. Prescription Medications: Zofran 4 mg: Take 1 orally every six hours as needed for nausea/vomiting. Dispense ten (10). No refills. Substitution is permissible. Phenergan suppositories 25 mg: Insert 1 rectally every 4 to 6 hours as needed for nausea or vomiting. Dispense ten (10). No refills. Substitution is permissible. Follow-up: Follow up with your doctor tomorrow. Call for an appointment. 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 Understanding of the discharge instructions verbalized by patient and family. ADDITIONAL INFORMATION Vomiting [6Yr-Adult] Vomiting is a common symptom that may be due to different causes. These include gastroenteritis ("stomach flu"), food poisoning and gastritis. There are other more serious causes of vomiting which may be hard to diagnose early in the illness. Therefore, it is important to watch for the warning signs listed below. The main danger from repeated vomiting is dehydration. This is due to excess loss of water and minerals from the body. When this occurs, body fluids must be replaced. Home Care: If symptoms are severe, rest at home for the next 24 hours. You may use acetaminophen (Tylenol) or ibuprofen (Motrin, Advil) to control fever, unless another medicine was prescribed. [NOTE : If you have chronic liver or kidney disease or ever had a stomach ulcer or GI bleeding, talk with your doctor before using these medicines.] (Aspirin should never be used in anyone under 18 years of age who is ill with a fever. It may cause severe liver damage.) Avoid tobacco and alcohol use, which may worsen your symptoms. If medicines for vomiting were prescribed, take as directed. Once vomiting stops, then follow these guidelines: During The First 12-24 Hours follow the diet below: FRUIT JUICES: Apple, grape juice, clear fruit drinks, and electrolyte replacement drinks. BEVERAGES: Soft drinks without caffeine; mineral water (plain or flavored), decaffeinated tea and coffee. SOUPS: Clear broth, consomm and bouillon DESSERTS: Plain gelatin, popsicles and fruit juice bars. As you feel better, you may add 6-8 ounces of yogurt per day. During The Next 24 Hours you may add the following to the above: Hot cereal, plain toast, bread, rolls, crackers Plain noodles, rice, mashed potatoes, chicken noodle or rice soup Unsweetened canned fruit (avoid pineapple), bananas Limit caffeine and chocolate. No spices or seasonings except salt. During The Next 24 Hours Gradually resume a normal diet, as you feel better and your symptoms lessen. Follow Up with your doctor as advised if you are not improving over the next 2-3 days. Get Prompt Medical Attention if any of the following occur: Constant right-sided lower abdominal pain or increasing general abdominal pain Continued vomiting (unable to keep liquids down) for 24 hours Frequent diarrhea (more than 5 times a day); blood (red or black color) or mucus in diarrhea Reduced urine output or extreme thirst Weakness, dizziness or fainting Unusually drowsy or confused Fever of 100.4F (38C) oral or higher, not better with fever medication Yellow color of the eyes or skin Marijuana Abuse Marijuana is the most widely used illegal drug in the [place]. It is called by various names such as pot, weed, blunts, grass, reefer, ganja, hash, hashish. It is usually smoked but can be mixed with foods or brewed as a tea. It is sometimes sold with PCP (Butch Dust) or amphetamine mixed in it. These drugs can cause other harmful side effects. Marijuana can cause the following effects: Changes in mood (stimulated, happy, drowsy, depressed, paranoid) Hallucinations Increased heart rate and blood pressure Increased appetite Time distortion, difficulty concentrating, impaired memory Lung damage (similar to cigarettes with chronic cough, wheezing, frequent colds and bronchitis) You can become psychologically dependent on marijuana. That means the craving to use the drug is emotional or psychological rather than due to physical withdrawal. Is Marijuana Running Your Life? Here are some of the signs: Relying on marijuana to feel good, forget problems, deal with stress or to relax Wanting to be alone most of the time or only with others who use drugs Losing interest in things that used to be important Changes in school or job performance or attendance Spending a lot of time thinking about how to get marijuana Stealing or selling your things so you can buy marijuana Unable to stop using even though you may want to quit Increasing anxiety, anger,or depression Sleeping too much, changes in eating habits (weight loss or gain) Needing to use more to get the same effect Home Care Once you have become addicted to any drug, quitting is hard to do. Most people find they can't quit without help. So, dont try to do this alone. Talk to someone you trust who can support you. Seek professional help. Avoid people and places where drugs are used. That only increases the temptation to use. Follow Up with your doctor or as advised by our staff. For more information or a referral to a treatment center in your area, contact: Your local mental health center or the National Alcohol and Substance Abuse Information Center (168)-701-3403 www.addictioncareAmbow Educationions.com National [place] on Alcoholism and Drug Dependence 455-305-RTYZ www.ncadd.org Marijuana Anonymous 195-164-3669 www.marijuana-anonymous.org Get Prompt Medical Attention if any of the following occur: You feel extreme depression, fear, anxiety, or anger toward yourself or others You feel out of control You feel that you may try to harm yourself or another Ondansetron Oral disintegrating tablet What is this medicine? ONDANSETRON (on SYED se souleymane) is used to treat nausea and vomiting caused by chemotherapy. It is also used to prevent or treat nausea and vomiting after surgery. How should I use this medicine? These tablets are made to dissolve in the mouth. Do not try to push the tablet through the foil backing. With dry hands, peel away the foil backing and gently remove the tablet. Place the tablet in the mouth and allow it to dissolve, then swallow. While you may take these tablets with water, it is not necessary to do so. Talk to your reeling operator regarding the use of this medicine in children. Special care may be needed. What side effects may I notice from receiving this medicine? Side effects that you should report to your doctor or health career orientation teacher as soon as possible: allergic reactions like skin rash, itching or hives, swelling of the face, lips, or tongue breathing problems dizziness fast or irregular heartbeat feeling faint or lightheaded, falls fever and chills swelling of the hands and feet tightness in the chest Side effects that usually do not require medical attention (report to your doctor or health career orientation teacher if they continue or are bothersome): constipation or diarrhea headache What may interact with this medicine? Do not take this medicine with any of the following medications: -apomorphine -cisapride -dofetilide -dronedarone -pimozide -thioridazine -ziprasidone This medicine may also interact with the following medications: -carbamazepine -phenytoin -rifampicin -tramadol -other medicines that prolong the QT interval (cause an abnormal heart rhythm) What if I miss a dose? If you miss a dose, take it as soon as you can. If it is almost time for your next dose, take only that dose. Do not take double or extra doses. Where should I keep my medicine? Keep out of the reach of children. Store between 2 and 30 degrees C (36 and 86 degrees F). Throw away any unused medicine after the expiration date. What should I tell my health care provider before I take this medicine? They need to know if you have any of these conditions: heart disease history of irregular heartbeat liver disease low levels of magnesium or potassium in the blood an unusual or allergic reaction to ondansetron, granisetron, other medicines, foods, dyes, or preservatives or trying to get breast-feeding What should I watch for while using this medicine? Check with your doctor or health career orientation teacher as soon as you can if you have any sign of an allergic reaction. Promethazine Hydrochloride Rectal suppository What is this medicine? PROMETHAZINE (proe METH a zeen) is an antihistamine. It is used to treat allergic reactions and to treat or prevent nausea and vomiting from illness or motion sickness. It is also used to make you sleep before surgery, and to help treat pain or nausea after surgery. How should I use this medicine? This medicine is for rectal use only. Do not take by mouth. Wash your hands before and after use. Take off the foil wrapping. Wet the tip of the suppository with cold tap water to make it easier to use. Lie on your side with your lower leg straightened out and your upper leg bent forward toward your stomach. Lift upper buttock to expose the rectal area. Apply gentle pressure to insert the suppository completely into the rectum, pointed end first. Hold buttocks together for a few seconds. Remain lying down for about 15 minutes to avoid having the suppository come out. Do not use more often than directed. Talk to your reeling operator regarding the use of this medicine in children. Special care may be needed. This medicine should not be given to infants and children younger than 2 years old. What side effects may I notice from receiving this medicine? Side effects that you should report to your doctor or health career orientation teacher as soon as possible: blurred vision irregular heartbeat, palpitations or chest pain muscle or facial twitches pain or difficulty passing urine seizures skin rash slowed or shallow breathing unusual bleeding or bruising yellowing of the eyes or skin Side effects that usually do not require medical attention (report to your doctor or health career orientation teacher if they continue or are bothersome): headache nightmares, agitation, nervousness, excitability, not able to sleep (these are more likely in children) stuffy nose What may interact with this medicine? Do not take this medicine with any of the following medications: medicines called MAO Inhibitors like Nardil, Parnate, Marplan, Eldepryl other phenothiazines like trimethobenzamide This medicine may also interact with the following medications: barbiturates such as phenobarbital bromocriptine certain antidepressants certain antihistamines used in allergy or cold medicines epinephrine levodopa medicines for sleep medicines for mental problems and psychotic disturbances medicines for movement abnormalities as in Parkinson's disease, or for gastrointestinal problems muscle relaxants prescription pain medicines What if I miss a dose? If you miss a dose, use it as soon as you can. If it is almost time for your next dose, use only that dose. Do not use double doses. Where should I keep my medicine? Keep out of the reach of children. Store in a refrigerator between 2 and 8 degrees C (36 and 46 degrees F). Throw away any unused medicine after the expiration date. What should I tell my health care provider before I take this medicine? They need to know if you have any of these conditions: glaucoma high blood pressure or heart disease kidney disease liver disease lung or breathing disease, like asthma prostate trouble pain or difficulty passing urine seizures an unusual or allergic reaction to promethazine or phenothiazines, other medicines, foods, dyes, or preservatives or trying to get breast-feeding What should I watch for while using this medicine? Tell your doctor or health career orientation teacher if your symptoms do not start to get better in 1 to 2 days. You may get drowsy or dizzy. Do not drive, use machinery, or do anything that needs mental alertness until you know how this medicine affects you. To reduce the risk of dizzy or fainting spells, do not stand or sit up quickly, especially if you are an older patient. Alcohol may increase dizziness and drowsiness. Avoid alcoholic drinks. Your mouth may get dry. Chewing sugarless gum or sucking hard candy, and drinking plenty of water may help. Contact your doctor if the problem does not go away or is severe. This medicine may cause dry eyes and blurred vision. If you wear contact lenses you may feel some discomfort. Lubricating drops may help. See your eye doctor if the problem does not go away or is severe. This medicine can make you more sensitive to the sun. Keep out of the sun. If you cannot avoid being in the sun, wear protective clothing and use sunscreen. Do not use sun lamps or tanning beds/booths. If you are diabetic, check your blood-sugar levels regularly. You have been given the following additional information: Vomiting (6Y-Adult) Marijuana Abuse Ondansetron Oral disintegrating tablet Promethazine Hydrochloride Rectal suppository No driving or operating machinery while taking medication. (Electronically signed by Clifford Rosario MD 12/02/2016 18:35)
--- NOTE | 2016-12-02 18:35 | ED MAR SUMMARY ---
..... Medication Administration Record [facility] [address] [place] [address] Patient: MOO FUENTES Visit ID: [id number] 21y, M Weight: 115.6 kg Height/Length: 72 in BMI: 34.6 ALLERGIES: No Known Drug Allergy Start 13:31 12/02/2016 Oliva Sharma,, Stop 16:05 12/02/2016 Oliva Sharma, Medication Administered: IV NS (SALINE), Dose: IV Fluids over 1 hour(s), Rate: 1000 mL/hr, Dispensed: 1000 mL bag, Site: #1 right AC. Medication Ordered: IV NS : initial bolus 1000 mL (1000 mL/hr), then 150 mL/hr for 4h (NOW); Urgent. Given 13:12/02/2016 Oliva Sharma, Medication Administered: ZOFRAN [IVP] (ONDANSETRON HCL), Dose: 4 mg IVP over 1 minute(s), Site: #1 right AC. Medication Ordered: Zofran IV 4 mg (NOW).
--- NOTE | 2016-12-02 18:35 | ED MED RECONCILIATION SUMMARY ---
Patient: MOO FUENTES Medication Reconciliation Report [facility] VisitID: [id number] [address] [place] [address] 21y, M Registration Date/Time: 12/02/2016 Weight: 115.6 kg Height/Length: 72 in. BMI: 34.6 ALLERGIES: No Known Drug Allergy The patient's Home Medications are listed below: THE FOLLOWING MEDICATIONS NEED TO BE RECONCILED: PROzac Oral Thyroid Oral The source(s) of the original Home Medication information: patient The following Medications were given to the patient in the Emergency Department: IV NS IV Fluids bolus 0, then 1000 mL/hr, administered: 12/02/2016 1:31:00 PM Zofran [IVP] IVP 4 mg, administered: 12/02/2016 1:31:00 PM The following Medications were prescribed to the patient: Zofran 4 mg: Take 1 orally every six hours as needed for nausea/vomiting. Dispense ten (10). No refills. Substitution is permissible. -- Clifford Rosario MD Phenergan suppositories 25 mg: Insert 1 rectally every 4 to 6 hours as needed for nausea or vomiting. Dispense ten (10). No refills. Substitution is permissible. -- Clifford Rosario MD
--- NOTE | 2016-12-02 18:35 | ED DISCHARGE INSTRUCTIONS ---
Patient: MOO FUENTES General Instructions [facility] VisitID: [id number] [place] [address] 21y, M Registration Date/Time: 12/02/2016 Vomiting. Diarrhea. Abnormal tests: (leukopenia and thrombocytopenia). Substance abuse- marijuana. INSTRUCTIONS No driving or operating machinery while taking medication. Drink plenty of fluids. (discontinue the use of marijuana as discussed. This may be contributing to your chronic reoccurring symptoms). Warnings: Further evaluation is necessary. GENERAL WARNINGS: Return or contact your physician immediately if your condition worsens or changes unexpectedly, if not improving as expected, or if other problems arise. Prescription Medications: Zofran 4 mg: Take 1 orally every six hours as needed for nausea/vomiting. Dispense ten (10). No refills. Substitution is permissible. Phenergan suppositories 25 mg: Insert 1 rectally every 4 to 6 hours as needed for nausea or vomiting. Dispense ten (10). No refills. Substitution is permissible. Follow-up: Follow up with your doctor tomorrow. Call for an appointment. 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 Understanding of the discharge instructions verbalized by patient and family. ADDITIONAL INFORMATION Vomiting [6Yr-Adult] Vomiting is a common symptom that may be due to different causes. These include gastroenteritis ("stomach flu"), food poisoning and gastritis. There are other more serious causes of vomiting which may be hard to diagnose early in the illness. Therefore, it is important to watch for the warning signs listed below. The main danger from repeated vomiting is dehydration. This is due to excess loss of water and minerals from the body. When this occurs, body fluids must be replaced. Home Care: If symptoms are severe, rest at home for the next 24 hours. You may use acetaminophen (Tylenol) or ibuprofen (Motrin, Advil) to control fever, unless another medicine was prescribed. [NOTE : If you have chronic liver or kidney disease or ever had a stomach ulcer or GI bleeding, talk with your doctor before using these medicines.] (Aspirin should never be used in anyone under 18 years of age who is ill with a fever. It may cause severe liver damage.) Avoid tobacco and alcohol use, which may worsen your symptoms. If medicines for vomiting were prescribed, take as directed. Once vomiting stops, then follow these guidelines: During The First 12-24 Hours follow the diet below: FRUIT JUICES: Apple, grape juice, clear fruit drinks, and electrolyte replacement drinks. BEVERAGES: Soft drinks without caffeine; mineral water (plain or flavored), decaffeinated tea and coffee. SOUPS: Clear broth, consomm and bouillon DESSERTS: Plain gelatin, popsicles and fruit juice bars. As you feel better, you may add 6-8 ounces of yogurt per day. During The Next 24 Hours you may add the following to the above: Hot cereal, plain toast, bread, rolls, crackers Plain noodles, rice, mashed potatoes, chicken noodle or rice soup Unsweetened canned fruit (avoid pineapple), bananas Limit caffeine and chocolate. No spices or seasonings except salt. During The Next 24 Hours Gradually resume a normal diet, as you feel better and your symptoms lessen. Follow Up with your doctor as advised if you are not improving over the next 2-3 days. Get Prompt Medical Attention if any of the following occur: Constant right-sided lower abdominal pain or increasing general abdominal pain Continued vomiting (unable to keep liquids down) for 24 hours Frequent diarrhea (more than 5 times a day); blood (red or black color) or mucus in diarrhea Reduced urine output or extreme thirst Weakness, dizziness or fainting Unusually drowsy or confused Fever of 100.4F (38C) oral or higher, not better with fever medication Yellow color of the eyes or skin Marijuana Abuse Marijuana is the most widely used illegal drug in the [place]. It is called by various names such as pot, weed, blunts, grass, reefer, ganja, hash, hashish. It is usually smoked but can be mixed with foods or brewed as a tea. It is sometimes sold with PCP (Butch Dust) or amphetamine mixed in it. These drugs can cause other harmful side effects. Marijuana can cause the following effects: Changes in mood (stimulated, happy, drowsy, depressed, paranoid) Hallucinations Increased heart rate and blood pressure Increased appetite Time distortion, difficulty concentrating, impaired memory Lung damage (similar to cigarettes with chronic cough, wheezing, frequent colds and bronchitis) You can become psychologically dependent on marijuana. That means the craving to use the drug is emotional or psychological rather than due to physical withdrawal. Is Marijuana Running Your Life? Here are some of the signs: Relying on marijuana to feel good, forget problems, deal with stress or to relax Wanting to be alone most of the time or only with others who use drugs Losing interest in things that used to be important Changes in school or job performance or attendance Spending a lot of time thinking about how to get marijuana Stealing or selling your things so you can buy marijuana Unable to stop using even though you may want to quit Increasing anxiety, anger,or depression Sleeping too much, changes in eating habits (weight loss or gain) Needing to use more to get the same effect Home Care Once you have become addicted to any drug, quitting is hard to do. Most people find they can't quit without help. So, dont try to do this alone. Talk to someone you trust who can support you. Seek professional help. Avoid people and places where drugs are used. That only increases the temptation to use. Follow Up with your doctor or as advised by our staff. For more information or a referral to a treatment center in your area, contact: Your local mental health center or the National Alcohol and Substance Abuse Information Center (870)-962-9190 www.addictioncareBlue Spark Technologiesions.com National [place] on Alcoholism and Drug Dependence 655-822-MOGY www.ncadd.org Marijuana Anonymous 162-525-0946 www.marijuana-anonymous.org Get Prompt Medical Attention if any of the following occur: You feel extreme depression, fear, anxiety, or anger toward yourself or others You feel out of control You feel that you may try to harm yourself or another Ondansetron Oral disintegrating tablet What is this medicine? ONDANSETRON (on SYED se souleymane) is used to treat nausea and vomiting caused by chemotherapy. It is also used to prevent or treat nausea and vomiting after surgery. How should I use this medicine? These tablets are made to dissolve in the mouth. Do not try to push the tablet through the foil backing. With dry hands, peel away the foil backing and gently remove the tablet. Place the tablet in the mouth and allow it to dissolve, then swallow. While you may take these tablets with water, it is not necessary to do so. Talk to your personnel officer regarding the use of this medicine in children. Special care may be needed. What side effects may I notice from receiving this medicine? Side effects that you should report to your doctor or health adult daycare coordinator as soon as possible: allergic reactions like skin rash, itching or hives, swelling of the face, lips, or tongue breathing problems dizziness fast or irregular heartbeat feeling faint or lightheaded, falls fever and chills swelling of the hands and feet tightness in the chest Side effects that usually do not require medical attention (report to your doctor or health adult daycare coordinator if they continue or are bothersome): constipation or diarrhea headache What may interact with this medicine? Do not take this medicine with any of the following medications: -apomorphine -cisapride -dofetilide -dronedarone -pimozide -thioridazine -ziprasidone This medicine may also interact with the following medications: -carbamazepine -phenytoin -rifampicin -tramadol -other medicines that prolong the QT interval (cause an abnormal heart rhythm) What if I miss a dose? If you miss a dose, take it as soon as you can. If it is almost time for your next dose, take only that dose. Do not take double or extra doses. Where should I keep my medicine? Keep out of the reach of children. Store between 2 and 30 degrees C (36 and 86 degrees F). Throw away any unused medicine after the expiration date. What should I tell my health care provider before I take this medicine? They need to know if you have any of these conditions: heart disease history of irregular heartbeat liver disease low levels of magnesium or potassium in the blood an unusual or allergic reaction to ondansetron, granisetron, other medicines, foods, dyes, or preservatives or trying to get breast-feeding What should I watch for while using this medicine? Check with your doctor or health adult daycare coordinator as soon as you can if you have any sign of an allergic reaction. Promethazine Hydrochloride Rectal suppository What is this medicine? PROMETHAZINE (proe METH a zeen) is an antihistamine. It is used to treat allergic reactions and to treat or prevent nausea and vomiting from illness or motion sickness. It is also used to make you sleep before surgery, and to help treat pain or nausea after surgery. How should I use this medicine? This medicine is for rectal use only. Do not take by mouth. Wash your hands before and after use. Take off the foil wrapping. Wet the tip of the suppository with cold tap water to make it easier to use. Lie on your side with your lower leg straightened out and your upper leg bent forward toward your stomach. Lift upper buttock to expose the rectal area. Apply gentle pressure to insert the suppository completely into the rectum, pointed end first. Hold buttocks together for a few seconds. Remain lying down for about 15 minutes to avoid having the suppository come out. Do not use more often than directed. Talk to your personnel officer regarding the use of this medicine in children. Special care may be needed. This medicine should not be given to infants and children younger than 2 years old. What side effects may I notice from receiving this medicine? Side effects that you should report to your doctor or health adult daycare coordinator as soon as possible: blurred vision irregular heartbeat, palpitations or chest pain muscle or facial twitches pain or difficulty passing urine seizures skin rash slowed or shallow breathing unusual bleeding or bruising yellowing of the eyes or skin Side effects that usually do not require medical attention (report to your doctor or health adult daycare coordinator if they continue or are bothersome): headache nightmares, agitation, nervousness, excitability, not able to sleep (these are more likely in children) stuffy nose What may interact with this medicine? Do not take this medicine with any of the following medications: medicines called MAO Inhibitors like Nardil, Parnate, Marplan, Eldepryl other phenothiazines like trimethobenzamide This medicine may also interact with the following medications: barbiturates such as phenobarbital bromocriptine certain antidepressants certain antihistamines used in allergy or cold medicines epinephrine levodopa medicines for sleep medicines for mental problems and psychotic disturbances medicines for movement abnormalities as in Parkinson's disease, or for gastrointestinal problems muscle relaxants prescription pain medicines What if I miss a dose? If you miss a dose, use it as soon as you can. If it is almost time for your next dose, use only that dose. Do not use double doses. Where should I keep my medicine? Keep out of the reach of children. Store in a refrigerator between 2 and 8 degrees C (36 and 46 degrees F). Throw away any unused medicine after the expiration date. What should I tell my health care provider before I take this medicine? They need to know if you have any of these conditions: glaucoma high blood pressure or heart disease kidney disease liver disease lung or breathing disease, like asthma prostate trouble pain or difficulty passing urine seizures an unusual or allergic reaction to promethazine or phenothiazines, other medicines, foods, dyes, or preservatives or trying to get breast-feeding What should I watch for while using this medicine? Tell your doctor or health adult daycare coordinator if your symptoms do not start to get better in 1 to 2 days. You may get drowsy or dizzy. Do not drive, use machinery, or do anything that needs mental alertness until you know how this medicine affects you. To reduce the risk of dizzy or fainting spells, do not stand or sit up quickly, especially if you are an older patient. Alcohol may increase dizziness and drowsiness. Avoid alcoholic drinks. Your mouth may get dry. Chewing sugarless gum or sucking hard candy, and drinking plenty of water may help. Contact your doctor if the problem does not go away or is severe. This medicine may cause dry eyes and blurred vision. If you wear contact lenses you may feel some discomfort. Lubricating drops may help. See your eye doctor if the problem does not go away or is severe. This medicine can make you more sensitive to the sun. Keep out of the sun. If you cannot avoid being in the sun, wear protective clothing and use sunscreen. Do not use sun lamps or tanning beds/booths. If you are diabetic, check your blood-sugar levels regularly. You have been given the following additional information: Vomiting (6Y-Adult) Marijuana Abuse Ondansetron Oral disintegrating tablet Promethazine Hydrochloride Rectal suppository No driving or operating machinery while taking medication. (Electronically signed by Clifford Rosario MD 12/02/2016 18:35)
--- NOTE | 2016-12-02 18:35 | ED MAR SUMMARY ---
..... Medication Administration Record [facility] [address] [place] [address] Patient: MOO FUENTES Visit ID: [id number] 21y, M Weight: 115.6 kg Height/Length: 72 in BMI: 34.6 ALLERGIES: No Known Drug Allergy Start 13:31 12/02/2016 Oliva Sharma,, Stop 16:05 12/02/2016 Oliva Sharma, Medication Administered: IV NS (SALINE), Dose: IV Fluids over 1 hour(s), Rate: 1000 mL/hr, Dispensed: 1000 mL bag, Site: #1 right AC. Medication Ordered: IV NS : initial bolus 1000 mL (1000 mL/hr), then 150 mL/hr for 4h (NOW); Urgent. Given 13:12/02/2016 Oliva Sharma, Medication Administered: ZOFRAN [IVP] (ONDANSETRON HCL), Dose: 4 mg IVP over 1 minute(s), Site: #1 right AC. Medication Ordered: Zofran IV 4 mg (NOW).
== END 2016-12-02 16:05 | disposition home or self-care (01) ==
LOC: ED SRH 12:50
DX: R11.2 Nausea with vomiting, unspecified (principal); R19.7 Diarrhea, unspecified; D69.6 Thrombocytopenia, unspecified; D72.819 Decreased white blood cell count, unspecified; F12.10 Cannabis abuse, uncomplicated
CPT/HCPCS: 90004; 90074; 90100; 92235; 92530; 92760; 92761; 92762; 92763; 92764; 92765; 92766; 92767; 93140; 95059